=== PATIENT | male | born 2005 | race Caucasian/White ===

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

== ENCOUNTER 2024-02-28 16:22 | Outpatient (REF) | payer MEDICAID, SELFPAY ==
[2024-02-29 19:37] LABS: Hepatitis C Ab w Rflx HCV PCR Negative (Negative)
[2024-02-29 19:41] LABS: HIV-1/2 Ag & Ab Screen Negative (Negative)
[2024-03-03 10:29] LABS: HSV Type 1 Ab, IgG Positive (Negative); HSV Type 2 Ab, IgG Negative (Negative)
[2024-03-03 10:55] LABS: Syphilis Serology (RPR) Negative (Negative)
[2024-03-03 12:05] LABS: Chlamydia Result Negative (Negative); GC Result Negative (Negative)
== END 2024-02-28 16:23 | disposition home or self-care (01) ==
LOC: LBN 16:22
PROVIDERS: PCP Pediatrics; Visit Provider Nurse Practitioner Family
DX: A64 Unspecified sexually transmitted disease (principal); Z11.3 Encounter for screening for infections with a predominantly sexual mode of transmission
CPT/HCPCS: 86803; 87389; 87491; 87591; 86592; 86695; 86696

== ENCOUNTER 2024-09-08 11:46 | Emergency (ER) | payer MEDICAID, SELFPAY ==
[2024-09-08 11:49] VITALS: BP 132/78; PULSE 80; RESP 18; TEMP 37; O2SAT 99
[2024-09-08] MEDS: Ondansetron 4 MG/2 ML VIAL IVP (12:38)
[2024-09-08] MEDS: Pantoprazole 40 MG VIAL IVP (12:38)
[2024-09-08 12:49] LABS: Abs Immature Grans 0.03 10^3/uL (0.0-0.06); Absolute Basophil Count 0.02 10^3/uL (0.0-0.2); Absolute Eosinophil Count 0.01 10^3/uL (0.0-0.7); Absolute Lymphocyte Count 0.84 10^3/uL (1.2-3.4); Absolute Monocyte Count 0.18 10^3/uL (0.1-0.8); Absolute Neutrophil Count 5.42 10^3/uL (1.2-6.7); Basophils % 0.3 %; Eosinophils % 0.2 %; HCT 47.8 % (40.0-50.0); HGB 16.7 g/dL (13.5-17.5); Immature Grans % 0.5 %; Lymphocytes % 12.9 %; MCH 29.6 pg (27.0-33.0); MCHC 34.9 % (32.0-36.0); MCV 85 fL (80-95); MPV 10.1 fL (8.0-11.0); Monocytes % 2.8 %; Neutrophils % 83.3 %; Platelet Count 194 10^3/uL (130-400); RBC 5.65 10^6/uL (4.36-5.78); RDW 12.1 % (11.8-14.1); RDW-SD 37.2 fL
[2024-09-08 13:02] LABS: INR 1.2 (0.9-1.1); Prothrombin Time 11.7 sec (9.1-11.1)
[2024-09-08 13:04] LABS: ALT 18 U/L (16-63); AST 16 U/L (15-37); Albumin 5.3 g/dL (3.4-5.0); Alkaline Phosphatase 97 U/L (46-116); Anion Gap 7.6 mmol/L (3-11); BUN 10 mg/dL (7-18); CO2 26.4 mmol/L (21.0-32.0); CREATININE 0.9 mg/dL (0.70-1.30); Calcium 9.7 mg/dL (8.5-10.1); Chloride 105 mmol/L (98-107); Estimated GFR 125.39 (mL/min/1.73m2); Glucose 112 mg/dL (74-106); Lipase 141 U/L (<78); Potassium 4.3 mmol/L (3.5-5.1); Sodium 139 mmol/L (136-145); Total Protein 8.4 g/dL (6.4-8.2)
[2024-09-08 13:29] VITALS: BP 119/72; PULSE 77; RESP 15; O2SAT 98
[2024-09-08 13:30] VITALS: BP 119/72; PULSE 77; RESP 15; TEMP 37; O2SAT 98
--- NOTE | 2024-09-08 14:24 | ED.GENADUL_ITS ---
Discharge Plan Disposition Patient Disposition: Home Condition: Stable Discharge Details Clinical Impression: Vomiting, Pancreatitis Primary Care Provider: Geoff Mcnelil ED Provider: Kyree Cortez Home Meds and New Rx's Prescriptions: New ondansetron 4 mg tablet,disintegrating 4 mg PO Q6H PRN (Reason: nausea and vomiting) Qty: 30 0RF pantoprazole [Protonix] 40 mg tablet,delayed release (DR/EC) 40 mg PO DAILY Qty: 14 0RF Discharge Instructions Instructions: Pancreatitis (DC), Nausea and vomiting in adults Additional Instructions: Your lab work does not reveal any significant ongoing GI bleeding. The blood you saw might likely be from microtears due to repeated vomiting. This can be common. You will be discharged with nausea medication as well as a medicine to help heal your stomach. It looks like you have mild symptoms of pancreatitis. The best treatment for this is a clear liquid diet, advance it slowly as tolerated. Return to the emergency department with severe pain, persistent vomiting and not able to tolerate anything by mouth, otherwise follow-up with your primary care provider as needed. HPI General Date/Time Provider Initiated Documentation: 09/08/24 11:55 . Limitations to Documentation: no limitations . Information obtained by: patient . HPI Narrative: 18-year-old gentleman with past medical history of anxiety presents for evaluation of vomiting and some mild epigastric abdominal pain. Patient reports that he has been vomiting since yesterday. He reports that he has a lot of ongoing stressors and that he often has vomiting as a result of his anxiety. He states that this morning after vomiting a few times he noticed some blood in it. Reports that he has not had anything to eat and so is vomit is mostly bile acid in the streaks of blood. He denies any alcohol use or drug use. Denies any history of change in stool color or prior GI bleeding. Related Data Home Medications ?Medication ?Instructions ?Recorded ?Confirmed ondansetron 4 mg disintegrating 4 mg PO Q6H PRN nausea and 09/08/24 tablet vomiting #30 tabs pantoprazole 40 mg tablet,delayed 40 mg PO DAILY #14 tabs 09/08/24 release (Protonix) Previous Rx's ?Medication ?Instructions ?Recorded ondansetron 4 mg disintegrating 4 mg PO Q6H PRN nausea and 09/08/24 tablet vomiting #30 tabs pantoprazole 40 mg tablet,delayed 40 mg PO DAILY #14 tabs 09/08/24 release (Protonix) Allergies Allergy/AdvReac Type Severity Reaction Status Date / Time No Known Allergies Allergy Verified 09/08/24 11:52 General Stated Complaint: Abd Prob MARK: 3 Exam Narrative Exam Narrative: Review of Systems: All systems reviewed & are unremarkable except as noted in HPI and below Well-developed, no acute distress NCAT PERRL, normal conjunctiva RRR Unlabored respiratory effort Nondistended abdomen no significant abdominal tenderness Course Vital Signs Vital signs: Vital Signs Temperature 37.0 C 09/08/24 11:49 Pulse 80 09/08/24 11:49 Respiratory Rate 18 09/08/24 11:49 Blood Pressure 132/78 09/08/24 11:49 Pulse Oximetry 99 09/08/24 11:49 Temperature 37.0 C 09/08/24 13:30 Temperature Source Oral 09/08/24 13:30 Pulse 77 09/08/24 13:30 Respiratory Rate 15 09/08/24 13:30 Blood Pressure 119/72 09/08/24 13:30 Blood Pressure Position Sitting 09/08/24 13:30 Pulse Oximetry 98 09/08/24 13:30 Oxygen Delivery Method Room Air 09/08/24 13:30 Lab/Test Results Lab/Test Results: Laboratory Tests Range/Units 09/08/24 09/08/24 12:42 12:48 WBC (4.4-10.8) 10^3/uL 6.50 RBC (4.36-5.78) 10^6/uL 5.65 Hgb (13.5-17.5) g/dL 16.7 Hct (40.0-50.0) % 47.8 MCV (80-95) fL 85 MCH (27.0-33.0) pg 29.6 MCHC (32.0-36.0) % 34.9 RDW (11.8-14.1) % 12.1 Plt Count (130-400) 10^3/uL 194 MPV (8.0-11.0) fL 10.1 Immature Gran % % 0.5 Neutrophils % % 83.3 Lymphocytes % % 12.9 Monocytes % % 2.8 Eosinophils % % 0.2 Basophils % % 0.3 Nucleated RBC % (0.0-0.3) % 0.0 Absolute Neutrophils (1.2-6.7) 10^3/uL 5.42 Absolute Lymphocytes (1.2-3.4) 10^3/uL 0.84 L Absolute Monocytes (0.1-0.8) 10^3/uL 0.18 Absolute Eosinophils (0.0-0.7) 10^3/uL 0.01 Absolute Basophils (0.0-0.2) 10^3/uL 0.02 PT (9.1-11.1) sec 11.7 H INR (0.9-1.1) 1.2 H Sodium (136-145) mmol/L 139 Potassium (3.5-5.1) mmol/L 4.3 Chloride (98-107) mmol/L 105 Carbon Dioxide (21.0-32.0) mmol/L 26.4 Anion Gap (3-11) mmol/L 7.6 BUN (7-18) mg/dL 10 Creatinine (0.70-1.30) mg/dL 0.9 Est GFR (CKD-EPI 2020) (mL/min/1.73m2) 125.39 Glucose (74-106) mg/dL 112 H Calcium (8.5-10.1) mg/dL 9.7 Total Bilirubin (0.2-1.0) mg/dL 1.0 AST (15-37) U/L 16 ALT (16-63) U/L 18 Alkaline Phosphatase (46-116) U/L 97 Total Protein (6.4-8.2) g/dL 8.4 H Albumin (3.4-5.0) g/dL 5.3 H Lipase (<78) U/L 141 H Medical Decision Making Emergent evaluation of vomiting with concern for hematemesis. Patient is well- appearing and hemodynamically stable, there is no active ongoing vomiting. He does report of a fair amount of vomiting at home. So I suspect the blood he is saying might be a Amelia-Kent tear. I doubt variceal bleeding, peptic ulcer disease or other more serious GI bleeding. Patient was resuscitated with some IV fluids and given antiemetic and PPI. Lab work obtained, no evidence of anemia or electrolyte derangement. No significant renal dysfunction or liver function derangement. His lipase is noted to be slightly elevated at 141 so I do suspect some mild pancreatitis. After medications given in the emergency department, he felt much better. The patient did not have any additional epis odes of vomiting and was able to tolerate liquids by mouth. The patient was sent home with some Zofran and a prescription was sent to the pharmacy for Zofran and a PPI. Recommend follow-up with PCP. Return precautions advised. Quality:SDOH Health Related Social Needs: No Data to Display PFSH All Active Problems (Updated 09/08/24 @ 13:18 by Kyree Cortez MD) Pancreatitis (Chronic) Vomiting (Acute) Anxiety (Chronic) Depression (Chronic) Insomnia (Acute 01/06/13) Inattention (Acute 04/26/15) Mild issues at school Herpes simplex (Acute 01/06/13) no cx Fear of darkness (Acute 01/06/13) Medical History Contusion of lower back and pelvis, initial encounter Fracture of radius with ulna, right, closed (08/22/20) Herpes simplex Overdose of trazodone Surgical History Circumcision Family History Mother Mental disorder Other Acute hepatitis c Social History Smoking/Tobacco Use Status: Current every day Smoking risk assessment performed?: Yes Alcohol Intake: current Alcohol Intake frequency: holidays/special occasions only Alcohol type: beer Drug use: Daily Substance use type: marijuana Communication Needs: None Education Level: high school Details: [employer] fall 2020 Pets and animals: Yes (4 dogs, 1 cat) Pets and animals: cat(s) and dog(s) Current gender identity: male Do you feel safe at home: Yes Do you feel safe in your relationship?: Yes PAWSS Have you Been Recently Intoxicated or Drunk Within the Last 30 days?: No Have you Ever Experienced Previous Episodes of Alcohol Withdrawal?: No Have you ever Experienced Withdrawal Seizures?: No Have you ever Experienced Delirium Tremens(DT)s?: No Have you ever undergone Alcohol Rehabilitation Treatment (i.e, inpt ot ou tpatient treatment programs)?: No Have you ever Experienced Blackouts?: No Have you ever Combined Alcohol with other Downers within the last 90 days?: No Have you ever Combined Alcohol with any other Substance of Abuse during the last 90 days?: No Positive Blood Alcohol level on Presentation? [PCS.BAL]: No Evidence of Increased Autonomic Activity (i.e. HR>120, tremor, sweating, agitation, nausea)?: No Result: 0
== END 2024-09-08 13:31 | disposition home or self-care (01) ==
PROVIDERS: Emergency Provider Emergency Medicine; PCP Pediatrics
DX: K85.90 Acute pancreatitis without necrosis or infection, unspecified (principal); R11.10 Vomiting, unspecified; R10.13 Epigastric pain
CPT/HCPCS: 99284 ×2; 96374; 96375; 36415; 80053; 83690; 85025; 85610; J2405; J2470

== ENCOUNTER 2024-11-10 19:01 | Emergency (ER) | payer MEDICAID, SELFPAY ==
[2024-11-10 19:04] VITALS: BP 112/69; PULSE 90; RESP 20; TEMP 36.6; O2SAT 96
--- NOTE | 2024-11-10 20:35 | ED.GENADUL_ITS ---
Discharge Plan Disposition Patient Disposition: Home Condition: Stable Discharge Details Clinical Impression: Concussion syndrome Primary Care Provider: Unknown,Unknown ED Provider: Geoff Heart Home Meds and New Rx's Prescriptions: Continued ondansetron 4 mg tablet,disintegrating 4 mg PO Q6H PRN (Reason: nausea and vomiting) Qty: 30 0RF pantoprazole [Protonix] 40 mg tablet,delayed release (DR/EC) 40 mg PO DAILY Qty: 14 0RF Discharge Instructions Instructions: Post-Concussion Syndrome ED Additional Instructions: You were seen in the emergency department for your likely concussion, please take Tylenol regularly for the first 2 days after, then add in ibuprofen, you may need brain rest activities as we discussed, I provided you a work note to take a couple extra breaks at work for a few days, please return for any alteration of mental status, projectile vomiting, repetitive questioning, failure to wake from sleep. Stand Alone Forms: Work Release Discharge Data Discharge Date/Time-TO BE ENTERED AT DEPARTURE: 11/10/24 20:58 HPI General Date/Time Provider Initiated Documentation: 11/10/24 19:18 . 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 Quality described as minor headstrike to L voodoo area, no radiation to LOC, nausea/vomiting, slurred speech, coordination difficulties, repetitive questioning/altered mentation per girlfriend, endorses some mild photophobia. Severity is described as mild to moderate. Palliating f actors include nothing specific attempted. Provoking factors include nothing specific. Patient not anticoagulated. Related Data Home Medications ?Medication ?Instructions ?Recorded ?Confirmed ondansetron 4 mg disintegrating 4 mg PO Q6H PRN nausea and 09/08/24 11/10/24 tablet vomiting #30 tabs pantoprazole 40 mg tablet,delayed 40 mg PO DAILY #14 t abs 09/08/24 11/10/24 release (Protonix) Previous Rx's ?Medication ?Instructions ?Recorded ondansetron 4 mg disintegrating 4 mg PO Q6H PRN nausea and 09/08/24 tablet vomiting #30 tabs pantoprazole 40 mg tablet,delayed 40 mg PO DAILY #14 t abs 09/08/24 release (Protonix) Allergies Allergy/AdvReac Type Severity Reaction Status Date / Time No Known Allergies Allergy Verified 11/10/24 19:10 General Stated Complaint: Headache MARK: 3 Review of Systems All systems reviewed & are unremarkable except as noted in HPI and below Exam Narrative Exam Narrative: GENERAL APPEARANCE: Well-nourished, non-toxic, awake and alert, atraumatic, no acute distress. SKIN: Warm, pink, dry, intact, without rashes/lesions/ulcerations. HEAD: Normocephalic, atraumatic- no scalp hematoma, no periorbital ecchymosis, normal hair distribution for gender/age. EYES: Normal conjunctiva, no exudates on lids/lashes. ENT: Nares patent, no circumoral cyanosis, no facial swelling NECK: Supple, trachea midline, painless cervical ROM. LUNGS/CHEST: Non-labored respirations, normal A/P diameter, symmetrical ex pansion, no chest wall deformity HEART (CV/PV): No peripheral edema, no JVD. ABDOMEN: Soft, non-distended, no guarding. MSK: Normal ROM, no swelling/deformity to bilateral UEs or LEs, moving all extr emities without weakness, no cyanosis, spine midline without tenderness, normal curvature. NEURO: Mental Status AAOx4 - alert to person, place, time, events No facial droop, no forehead involvement, no dysmetria with cerebellar testing Motor: No focal weakness - strength 5/5 in bilateral UEs and LEs, proximal and distal, symmetric. Sensory: sensation intact to light touch globally. Gait normal: patient ambulated without ataxia into ED room. PSYCH: euthymic, cooperative, pleasant, appropriate speech Course Vital Signs Vital signs: Vital Signs Temperature 36.6 C 11/10/24 19:04 Pulse 90 11/10/24 19:04 Respiratory Rate 20 11/10/24 19:04 Blood Pressure 112/69 11/10/24 19:04 Pulse Oximetry 96 11/10/24 19:04 Temperature 36.6 C 11/10/24 19:04 Temperature Source Oral 11/10/24 19:04 Pulse 90 11/10/24 19:04 Respiratory Rate 20 11/10/24 19:04 Blood Pressure 112/69 11/10/24 19:04 Blood Pressure Position Sitting 11/10/24 19:04 Pulse Oximetry 96 11/10/24 19:04 Oxygen Delivery Method Room Air 11/10/24 19:04 Oxygen Flow Rate 0 11/10/24 19:04 Pain Level 6 11/10/24 19:04 Medical Decision Making This dictation utilizes [id number] dictation software and may contain unedited grammatical errors. 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 Quality described as minor headstrike to L voodoo area, no radiation to LOC, nausea/vomiting, slurred speech, coordination difficulties, repetitive questioning/altered mentation per girlfriend, endorses some mild photophobia. Severity is described as mild to moderate. Palliating factors include nothing specific attempted. Provoking factors include nothing specific. Patients' medical history: noncontributory. Family and social history: noncontributory. Pertinent exam findings / vital signs include no scalp hematoma, no periorbital ecchymosis, neuro intact. Differential / pathologies of concern include concussion syndrome, not ICH. Diagnostic studies of: -none- does not meet [place] Head CT criteria. Interventions of: -none, recommend OTCs at home. ED Course/Assessment/Plan: 19-year-old male who presents after head strike earlier today with no signs of severe concussion or ICH, does not meet head CT criteria, counseled on possibly needing brain rest activities over the next few days but should improve with Tylenol and ibuprofen, counseled on strict return criteria for any altered mentation or other emergent concerns. Findings not consistent with intracranial hemorrhage, severe concussion, neurologic abnormality. Disposition of Concussion syndrome. Patient verbalized understanding of the plan and return to ED criteria and engaged in shared decision making. Medical Records Medical records reviewed: Yes I reviewed the patient's medical records. PFSH All Active Problems (Updated 11/10/24 @ 20:36 by ARON Nielsen) Concussion syndrome (Acute) Anxiety (Chronic) Depression (Chronic) Insomnia (Acute 01/06/13) Inattention (Acute 04/26/15) Mild issues at school Herpes simplex (Acute 01/06/13) no cx Fear of darkness (Acute 01/06/13) Medical History Contusion of lower back and pelvis, initial encounter Fracture of radius with ulna, right, closed (08/22/20) Herpes simplex Overdose of trazodone Surgical History Circumcision Family History Mother Mental disorder Other Acute hepatitis c Social History Smoking/Tobacco Use Status: Current every day Smoking risk assessment performed?: Yes Alcohol Intake: current Alcohol Intake frequency: holidays/special occasions only Alcohol type: beer Drug use: Daily Substance use type: marijuana Communication Needs: None Education Level: high school Details: [employer] fall 2020 Pets and animals: Yes (4 dogs, 1 cat) Pets and animals: cat(s) and dog(s) Current gender identity: male Do you feel safe at home: Yes Do you feel safe in your relationship?: Yes
[2024-11-10 20:58] VITALS: BP 112/69; PULSE 90; RESP 20; TEMP 36.6; O2SAT 96
== END 2024-11-10 20:58 | disposition home or self-care (01) ==
PROVIDERS: Emergency Provider Physician Assistant
DX: S06.0X0A Concussion without loss of consciousness, initial encounter (principal); W20.8XXA Other cause of strike by thrown, projected or falling object, initial encounter
CPT/HCPCS: 99283 ×2